=== PATIENT | female | born 1945 | race Caucasian/White ===

== ENCOUNTER 2022-11-01 11:57 | Inpatient (IN) | payer MEDICARE ==
[2022-11-01] MEDS ORDERED: Cyclobenzaprine 10 MG TAB PO PRN (12:30)
[2022-11-01] MEDS ORDERED: HYDROcodone/Acetaminophen 7.5/325 mg Tablet PO PRN (12:30)
[2022-11-01] MEDS ORDERED: Acetaminophen 325 MG TAB PO PRN (12:30)
[2022-11-01] MEDS ORDERED: HYDROcodone/Acetaminophen 5/325 mg Tablet PO PRN (12:30)
[2022-11-01] MEDS ORDERED: Guaifenesin DM 100-10/5 ML UDCUP PO PRN (12:35)
[2022-11-01] MEDS ORDERED: Artificial Tear Sol 15 ML BOT EA EYE PRN (12:35)
[2022-11-01] MEDS ORDERED: Bisacodyl 10 MG SUPP PR PRN (12:35)
[2022-11-01] MEDS ORDERED: Ondansetron ODT 4 MG TAB PO PRN (12:35)
[2022-11-01] MEDS ORDERED: Calcium Carbonate 500 MG ChewTAB PO PRN (12:35)
[2022-11-01] MEDS ORDERED: Benzonatate 100 MG CAP PO PRN (12:35)
[2022-11-01] MEDS ORDERED: Bisacodyl 5 MG TAB PO PRN (12:35)
[2022-11-01] MEDS ORDERED: Acetaminophen 650 MG Suppository PR PRN (12:35)
[2022-11-01] MEDS ORDERED: Senokot S 8.6-50 MG TAB PO PRN (12:35)
[2022-11-01] MEDS ORDERED: Sodium Chloride 0.65% Nasal 44 ML BOT EA NARE PRN (12:35)
[2022-11-01 13:12] VITALS: BMI 29.7
[2022-11-01 13:36] VITALS: BP 134/84; TEMP 98
[2022-11-01] MEDS: Ipratropium/Albuterol 3 ML NEB NEB SCH (15:48)
[2022-11-01] MEDS ORDERED: Ipratropium/Albuterol 3 ML NEB NEB SCH (18:00)
[2022-11-01] MEDS ORDERED: Vit A,C & E/Lutein/Minerals Tablet PO SCH (21:00)
[2022-11-01] MEDS ORDERED: Cyclobenzaprine 10 MG TAB PO SCH (21:00)
[2022-11-01] MEDS ORDERED: Famotidine 20 MG TAB PO SCH ×2 (21:00)
[2022-11-01] MEDS ORDERED: Gabapentin 300 MG CAP PO SCH (21:00)
[2022-11-01] MEDS ORDERED: Mometasone/Formoterol 200/5 60 PUFF INH SCH (21:00)
[2022-11-02] MEDS ORDERED: Levothyroxine Sodium 25 MCG TAB PO SCH (06:00)
[2022-11-02] MEDS ORDERED: Ezetimibe 10 MG TAB PO SCH (09:00)
== END 2022-11-01 15:55 | disposition short-term general hospital (02) | DRG 560 ==
LOC: NAV ACUTE 12:35
PROVIDERS: ADMIT Family Medicine; ATTEND Family Medicine
DX: Z47.89 Encounter for other orthopedic aftercare (principal); I13.0 Hypertensive heart and chronic kidney disease with heart failure and stage 1 through stage 4 chronic kidney disease, or unspecified chronic kidney disease; R53.1 Weakness; J44.9 Chronic obstructive pulmonary disease, unspecified; E78.5 Hyperlipidemia, unspecified; E03.9 Hypothyroidism, unspecified; G43.909 Migraine, unspecified, not intractable, without status migrainosus; F17.210 Nicotine dependence, cigarettes, uncomplicated; N18.30 Chronic kidney disease, stage 3 unspecified; I12.9 Hypertensive chronic kidney disease with stage 1 through stage 4 chronic kidney disease, or unspecified chronic kidney disease; I50.9 Heart failure, unspecified; E11.22 Type 2 diabetes mellitus with diabetic chronic kidney disease; Z66 Do not resuscitate; Z88.5 Allergy status to narcotic agent; Z88.0 Allergy status to penicillin; Z79.899 Other long term (current) drug therapy; Z98.890 Other specified postprocedural states; Z88.2 Allergy status to sulfonamides
CPT/HCPCS: 36415; 71045; 71275; 81003; 81015; 82553; 83605; 83880; 84484; 85379; 87040; 93005; 94640; 96365; 96367; 96375; J0692; J1940; J1956; J3490; J7611; Q9967

== ENCOUNTER 2022-11-01 15:45 | Emergency (ER) | payer MEDICARE ==
[~2022-11-01 15:45] MED LIST: Iopamidol 370 76% 100 ML VIAL ONE
[2022-11-01 16:12] LABS: ALT (SGPT) 39 U/L (8-55); AST (SGOT) 40 U/L (5-34); Albumin 3.4 g/dL (3.4-4.8); Alkaline Phosphatase 101 U/L (40-110); Anion Gap 20 mmol/L (10-20); BUN (Urea Nitrogen) 26 mg/dL (9.8-20.1); Bilirubin, Total 0.8 mg/dL (0.2-1.2); Calc. Creatinine Clearance 0 mL/min (70-130); Calcium 8.4 mg/dL (7.8-10.44); Carbon Dioxide 20 mmol/L (23-31); Chloride 100 mmol/L (98-107); Estimated GFR 36; Globulin 2.6 g/dL (2.4-3.5); Glucose 197 mg/dL (83-110); Potassium 3.5 mmol/L (3.5-5.1); Sodium 136 mmol/L (136-145)
[2022-11-01 16:13] LABS: #Lymphocytes 0.8 thou/uL (1.20-3.40); #Monocytes 0.7 thou/uL (0.11-0.59); %Basophils 0.5 % (0.0-1.0); %Eosinophils 0.2 % (0.0-10.0); %Lymphocytes 8.4 % (21.0-51.0); %Monocytes 7.4 % (0.0-10.0); %Neutrophils 83.5 % (42.0-75.0); Hemoglobin 11.3 g/dL (12.0-16.0); Mean Corpuscular HGB CONC 33.4 g/dL (32.0-36.0); Mean Corpuscular Hemoglobin 32.4 pg (27.0-31.0); Mean Platelet Volume 5.7 fL (7.4-10.4); Platelet Count 230 10x3/uL (130-400); Red Blood Cell (RBC) Count 3.48 mill/uL (4.20-5.40); White Blood Cell (WBC) Count 9.6 10x3/uL (4.8-10.8)
[2022-11-01] MEDS ORDERED: Acetaminophen 325 MG TAB ONE (16:23)
[2022-11-01] MEDS ORDERED: Furosemide 40 MG/4 ML VIAL ONE (17:08)
[2022-11-01] MEDS ORDERED: Nitroglycerin 2% Ointment 1 INCH/1 GM Packet ONE (17:24)
[2022-11-01] MEDS ORDERED: Cefepime 2 GM VIAL ONE (17:48)
[2022-11-01] MEDS ORDERED: Sodium Chloride 0.9% 100 ML ONE ×2 (17:50→18:00)
[2022-11-01 17:53] LABS: Bilirubin Negative (Negative); Blood, Urine Trace (Negative); Clarity Clear (Clear); Glucose, Urine (Dipstick) 100 mg/dL (Negative); Ketone, Urine Negative (Negative); Leukocyte Negative (Negative); Nitrite Negative (Negative); Protein, Urine (Dipstick) 100 mg/dL (Neg-Trace); Specific Gravity, Urine 1.015 (1.005-1.030); Urobilinogen 0.2 mg/dL (Less than 2); pH, Urine 6.5 (5.0-9.0)
[2022-11-01 17:59] LABS: RBC/HPF 0-3 HPF (0-3)
[2022-11-01 18:00] LABS: Bacteria/HPF Rare-Few HPF (None Seen); Squamous Epithelial 0-3 HPF (0-3)
[2022-11-01 18:17] LABS: Lactic Acid 3.3 mmol/L (0.5-2.2)
== END 2022-11-01 20:50 | disposition home or self-care (01) ==
LOC: NAV ERS 15:45
DX: I11.0 Hypertensive heart disease with heart failure (principal); I50.9 Heart failure, unspecified; I70.0 Atherosclerosis of aorta; I73.9 Peripheral vascular disease, unspecified; K80.80 Other cholelithiasis without obstruction; J18.9 Pneumonia, unspecified organism; A41.9 Sepsis, unspecified organism; J44.9 Chronic obstructive pulmonary disease, unspecified; E03.9 Hypothyroidism, unspecified; G43.909 Migraine, unspecified, not intractable, without status migrainosus; F17.290 Nicotine dependence, other tobacco product, uncomplicated; E78.00 Pure hypercholesterolemia, unspecified; Z79.899 Other long term (current) drug therapy
CPT/HCPCS: 36415; 71275; 81003; 81015; 82553; 83605; 83880; 84484; 85379; 87040; 93005; 96365; 96367; 96375; J0692; J1940; J1956; J3490; Q9967